=== PATIENT | male | born 1965 | race Caucasian/White ===

== ENCOUNTER 2018-07-07 16:01 | Emergency (ER) | payer OTHER, SELFPAY ==
[2018-07-07 16:31] VITALS: BMI 25.0
[2018-07-07 16:36] VITALS: BP 149/107; PULSE 68; RESP 18; TEMP 98.7; O2SAT 98
[2018-07-07] MEDS ORDERED: Lidocaine 5% Patch TD STA (17:34)
[2018-07-07] MEDS ORDERED: Lidocaine 5% Patch TD ONE (18:02)
--- NOTE | 2018-07-07 19:15 | C.PDOC ---
History Of Present Illness 52 year old male presents [facility] ED for evaluation of right sided lower back pain which began after lifting a 50-60 pound garbage bag yesterday. Patient states his pain is worse with movement and with walking. He denies urinary/bowel incontinence, recent trauma/falls, extremity numbness/weakness. Time Seen by Provider: 07/07/18 17:08 Chief Complaint (Nursing): Back Pain History Per: Patient History/Exam Limitations: no limitations Onset/Duration Of Symptoms: Hrs Current Symptoms Are (Timing): Still Present Quality Of Discomfort: "Pain" Associated Symptoms: denies: New Weakness, New Numbness Additional History Per: Patient Past Medical History Reviewed: Historical Data, Nursing Documentation, Vital Signs Vital Signs: Last Vital Signs Temp 98.7 F 07/07/18 16:31 Pulse 68 07/07/18 16:31 Resp 18 07/07/18 16:31 BP 149/107 H 07/07/18 16:31 Pulse Ox 98 07/07/18 16:31 - Medical History PMH: No Chronic Diseases Surgical History: No Surg Hx Family History: States: Unknown Family Hx - Social History Hx Alcohol Use: Yes Hx Substance Use: No - Immunization History Hx Tetanus Toxoid Vaccination: No Hx Influenza Vaccination: No Hx Pneumococcal Vaccination: No Review Of Systems Genitourinary: Negative for: Incontinence Musculoskeletal: Positive for: Back Pain (right-sided, lower ) Skin: Negative for: Rash, Lesions, Jaundice, Bruising Neurological: Negative for: Weakness, Numbness Physical Exam - Physical Exam Appears: Non-toxic, No Acute Distress, Other (appears uncomfortable, visible discomfort seen with changing position ) Skin: Normal Color, Warm, Dry Head: Atraumatic, Normacephalic Chest: Symmetrical, No Deformity Gastrointestinal/Abdominal: Soft, No Tenderness Back: No Vertebral Tenderness, Paraspinal Tenderness (right-sided, lumbar ) Extremity: Normal ROM, Capillary Refill (less than 2 seconds ) Neurological/Psych: Normal Speech, Normal Cognition, Normal Motor, Normal Sensation Gait: Steady ED Course And Treatment O2 Sat by Pulse Oximetry: 98 (on RA ) Pulse Ox Interpretation: Normal Medical Decision Making Medical Decision Making: pt with some [id number] pain s/p medications. d/c home with muscle relaxant. tylrenol and motrin Disposition Counseled Patient/Family Regarding: Diagnosis, Need For Followup, Rx Given - Disposition Referrals: Izquierdo,Jonny J, MD [Non-Staff] - Disposition: HOME/ ROUTINE Disposition Time: 19:12 Condition: GOOD Additional Instructions: Por favor, retire el parche en 12 horas. Yesika relajante muscular e ibupforeno y tylenol deshaun se prescribe. Trate de moverse lo ms posible. Evite levantar objetos pesados. Seguimiento [facility] Dr. Izquierdo en 1-2 muñoz. Regrese a ER si es peor. Please remove patch in 12 hours. Take muscle relaxant and ibupforen and tylenol as prescrbied. Try to move around as much as possible. Avoid heavy lifting. Follow up [facility] Dr Izquierdo in 1-2 days. Return to ER if worse. Prescriptions: Acetaminophen [Tylenol 325mg tab] 650 mg PO Q4 #50 tab Cyclobenzaprine [Cyclobenzaprine HCl] 10 mg PO Q8 #9 tab Ibuprofen [Motrin] 600 mg PO TID #30 tab Instructions: Low Back Pain (DC) Forms: Gen Discharge Inst Pashto, [facility] (Pashto), Work Excuse Print Language: ARABIC - Clinical Impression Clinical Impression: Low back strain - Scribe Statement The provider has reviewed the documentation as recorded by the Scribe (Angela Montalvo) All medical record entries made by the Scribe were at my direction and personally dictated by me. I have reviewed the chart and agree that the record accurately reflects my personal performance of the history, physical exam, medical decision making, and the department course for this patient. I have also personally directed, reviewed, and agree with the discharge instructions and disposition.
== END 2018-07-07 19:20 | disposition home or self-care (01) ==
LOC: C.ER 16:01
DX: S39.012A Strain of muscle, fascia and tendon of lower back, initial encounter (principal); X50.0XXA Overexertion from strenuous movement or load, initial encounter; Y92.89 Other specified places as the place of occurrence of the external cause; Y99.0 Civilian activity done for income or pay
CPT/HCPCS: 96372; 99283; J1885